=== PATIENT | female | born 1950 | race Caucasian/White ===

== ENCOUNTER 2024-06-06 05:18 | Day surgery (SDC) | payer OTHER ==
[2024-06-04 15:53] VITALS: BMI 26.9
[2024-06-06 11:08] VITALS: TEMP 98.3
[2024-06-06] MEDS: AMOX TR/POT CLAV 875MG/125MG TABLETS (FP) PO ONE (13:05)
[2024-06-06 13:39] VITALS: BP 134/56; PULSE 82; RESP 20
== END 2024-06-06 13:20 | disposition home or self-care (01) ==
LOC: JASU-ENDO 05:18
PROVIDERS: ATTEND Internal Medicine Gastroenterology
PROC: 0DBM8ZX Excision of Descending Colon, Via Natural or Artificial Opening Endoscopic, Diagnostic (ICD-10-PCS; principal; 2024-06-06 10:00)
DX: Z12.11 Encounter for screening for malignant neoplasm of colon (principal); D12.4 Benign neoplasm of descending colon; K63.89 Other specified diseases of intestine
CPT/HCPCS: 71045-TC-FY; 88305-TC